=== PATIENT | female | born 1975 | race Two or more races ===

== ENCOUNTER → 2018-02-08 | Emergency (ER) | payer OTHER ==
[~2018-02-08] VITALS: Ht 152.4 cm; Wt 62.6 kg
[~2018-02-08] MED LIST: Acetaminophen 650mg/20.3ml NG ONE; LIDOCAINE700 M1 TP; Methocarbamol 500mg tab ORAL ONE; ROBAXIN500 MG PO; TYLENOL EXTRA500 MG ORAL
[2018-02-08 17:01] VITALS: BP 127/81
--- NOTE | 2018-02-08 17:16 | Emergency Room Report ---
History of Present Illness General Chief Complaint: Lower Back Pain or Injury Source: Patient Present Illness HPI 42-year-old female patient presents ER complaining of low back pain since yesterday. 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 Denies history of back problems. Denies radiation of pain. Reports able to ambulate. Reports wears back brace at work. Reports has taken NSAIDs for pain relief. Denies bowel or bladder incontinence. Denies other acute symptoms. Allergies: Coded Allergies: No Known Allergies (Unverified , 02/08/18) Patient History Past Medical History: see triage record Reviewed Nursing Documentation: PMH: Agreed; PSxH: Agreed Nursing Documentation-PMH Past Medical History: No Stated History Review of Systems All Other Systems: negative except mentioned in HPI Physical Exam Vital Signs Date Time Temp Pulse Resp B/P (MAP) Pulse Ox O2 Delivery O2 Flow Rate FiO2 02/08/18 17:01 98.3 79 18 127/81 97 Room Air 98.2 Sp02 EP Interpretation: reviewed, normal General Appearance: well appearing, no apparent distress, alert, GCS 15, non- toxic Head: normocephalic, atraumatic ENT: hearing grossly normal, normal pharynx, no angioedema, normal voice, uvula midline, moist mucus membranes Neck: full range of motion, no bony tend Respiratory: lungs clear, normal breath sounds, no rhonchi, no respiratory distress, no accessory muscle use, no wheezing, speaking full sentences Cardiovascular #1: regular rate, rhythm, no edema Musculoskeletal: back normal, digits/nails normal, gait/station normal, normal range of motion, other - No bony step-off, And deformity, tender - TTP over her bilateral lumbosacral region Neurologic: alert, oriented x3, responsive, motor strength/tone normal, SLR negative, sensory intact Psychiatric: mood/affect normal Skin: no rash Medical Decision Making PA Attestation Dr. Rosas is my supervising Physician whom patient management has been discussed with. Diagnostic Impression: Primary Impression: Lumbosacral strain ER Course Pt presents to ED c/o back pain. DDX considered but are not limited to sprain, strain, cauda equina, muscle spasm. Low suspicion for cauda equina, no bowel or bladder incontinence or retention. VITAL SIGNS are WNL, patient is afebrile Ordered pain medication, imaging, labs. ER COURSE: Pain medication provided. full range of motion, able to bend for touch toes, lateral twists from each side and able to side bend, radiation of pain, patient ambulating independently without difficulty, no bowel or bladder incontinence. No bony step-off. Likely muscle strain, does not require imaging at this time. low suspicion for fracture. Completed Workmen's Compensation paperwork. advised patient on rest, ice, heat. return to modified work, no heavy lifting or bending and stooping. needs clearance from Workmen's Compensation physician for return to work. Followup with pain management and/or PT. Request referral from PCP. Followup with PCP for further MRI and/or CT imaging as needed. DISCHARGE: -Rx provided for Tylenol -Rx provided for Lidocaine patch -Rx provided for Robaxin. SE may cause drowsiness, do not take prior to drinking , driving, or operating heavy machinery. At this time pt. is stable for d/c to home. At this time patient is resting comfortably, in no acute distress, nontoxic appearing, smiling and talking without difficulty. Will provide printed patient care instructions, and any necessary prescriptions. Patient instructed to follow with primary care provider for further treatment and referral as needed. Care plan and follow up instructions have been discussed with the patient prior to discharge. Patient reports understanding and agreement to treatment plan. Patient questions asked and answered. ER precautions given, patient instructed to return to ER immediately for any new or worsening of symptoms. - Please note that this Emergency Department Report was dictated using [employer] welder technology software, occasionally this can lead to erroneous entry secondary to interpretation by the dictation equipment. Last Vital Signs Date Time Temp Pulse Resp B/P (MAP) Pulse Ox O2 Delivery O2 Flow Rate FiO2 02/08/18 17:01 98.3 79 18 127/81 97 Room Air 98.2 Disposition: HOME, SELF-CARE Condition: Stable Scripts Methocarbamol* (ROBAXIN*) 500 Mg Tablet 500 MG PO TID, #21 TAB 0 Refills Prov: Clinton Oakley P.A. 02/08/18 Lidocaine (Lidocaine) 1 Each Adh..patch 700 MG TP DAILY for 7 Days, #7 PATCH Prov: Clinton Oakley P.A. 02/08/18 Acetaminophen* (TYLENOL EXTRA STRENGTH*) 500 Mg Tablet 500 MG ORAL Q8H PRN for Prn Headache/Temp > 101, #30 TAB 0 Refills Prov: Clinton Oakley 02/08/18 Patient Instructions: Lumbosacral Strain Additional Instructions: Patient instructed to follow up with primary care provider 3-5 and discuss further referral and imaging at that time. Patient instructed on rest, ice and heat. Do not take muscle relaxant prior to drinking, driving, or operating heavy machinery. Take medications as directed. Patient questions asked and answered. ER precautions given, patient instructed to return to ER immediately for any new or worsening of symptoms. Clinton Oakley Feb 08, 2018 17:16
== END | disposition home or self-care (01) ==
LOC: EMR 17:32
DX: S39.012A Strain of muscle, fascia and tendon of lower back, initial encounter (principal); X50.0XXA Overexertion from strenuous movement or load, initial encounter; Y93.F2 Activity, caregiving, lifting; Y92.239 Unspecified place in hospital as the place of occurrence of the external cause; Y99.0 Civilian activity done for income or pay
CPT/HCPCS: 99284